=== PATIENT | female | born 1955 | race Caucasian/White ===

== ENCOUNTER → 2023-11-16 13:59 | Outpatient (REF) | payer OTHER, SELFPAY | LOC: HWRCS 13:59 | PROVIDERS: ATTENDING PHYSICIAN Internal Medicine; FAMILY PHYSICIAN Family Medicine | DX: R00.2 Palpitations (principal); I34.0 Nonrheumatic mitral (valve) insufficiency; I47.10 Supraventricular tachycardia, unspecified | CPT/HCPCS: 93306 ==

== ENCOUNTER → 2024-01-05 11:35 | Outpatient (REF) | payer OTHER, SELFPAY | LOC: HWWDC 11:35 | PROVIDERS: ATTENDING PHYSICIAN Specialist; FAMILY PHYSICIAN Family Medicine | DX: Z12.31 Encounter for screening mammogram for malignant neoplasm of breast (principal) | CPT/HCPCS: 77063; 77067 ==

== ENCOUNTER 2024-11-24 01:25 | Emergency (ER) | payer OTHER, SELFPAY ==
[2024-11-24] VITALS (7 sets, daily range): BP systolic 127–167; BP diastolic 73–131; BMI 25.4
--- NOTE | 2024-11-24 02:06 | EDRN ---
Pt went to bed, laid down for few minutes and she noted rapid HR 'it was quick then off.' Pt has had episodes similar to this due to leaky heart valve. Usually, palpitations go away in few minutes but tonight, they persisted. No hx afib. No sob,
cp, n/v, dizziness.
[2024-11-24 02:18] LABS: Hematocrit 45.2 % (37.0-47.0); Hemoglobin 15.3 g/dL (12.0-16.0); Mean Corp Hgb Conc. 33.8 g/dL (33.0-37.0); Mean Corpuscular Volume 88.6 fL (81.0-99.0); Nucleated Red Blood Cells % 0 %; Platelet Count 434 10^3/uL (130-400); Red Cell Dist. Width 14.3 % (11.5-14.5)
[2024-11-24] MEDS: CARDIZEM 15 MG IV (02:21)
--- NOTE | 2024-11-24 02:23 | ED.GENMED ---
History of Present Illness
<Timothy Martínez, DO - Last Filed: 11/24/24 02:23>
General
Chief Complaint: Heart Rate Problem
Time Seen by Provider: 11/24/24 01:57
<Vijay Thomas MD, Resident - Last Filed: 11/24/24 04:22>
General
Source: patient
History of Present Illness
History of Present Illness:
This is a 69-year-old female with known history of paroxysmal SVT, palpitations, mitral regurgitation, hypertension and anxiety follows with cardiology Dr. Rivera outpatient presenting in the emergency department today with concerns of ' funny
sensation in the heart' she states that she was fine and went to bed and all of a sudden she developed these sensations and felt that her heart was beating too fast. She was very anxious which prompted her to visit the emergency department.
Past History
<Timothy Martínez, DO - Last Filed: 11/24/24 02:23>
Past History
ED Past Medical History: GERD, Hypercholesterolemia, Psychiatric and Other (History of dizziness, digestive issues with GERD, anxiety, Palpatations)
ED Past Surgical History: Gynecological (Hysterectomy) and Other (Pre-cancerous mass removed, right breast surgery,)
Social History
Tobacco: Non-smoker
Alcohol: None
Drug: None
Personal:
Living: with family
Employment: Not employed
Family History
Family History: Other (Noncontributory)
Review of Systems
<Vijay Thomas MD, Resident - Last Filed: 11/24/24 04:22>
Review of Systems
Allergies reviewed?: Yes
All Other Systems: ROS reviewed and negative except as documented in HPI and ROS
Phy Exam
<Vijay Thomas MD, Resident - Last Filed: 11/24/24 04:22>
General Physical Exam
General Presentation: well appearing (Anxious)
General age: appears stated age
General Skin: warm
General Habitus: normal
Cardiovascular Exam
Cardiovascular Exam: irregularly irregular and tachycardia
Pulmonary Exam
Pulmonary Exam: lungs clear, no respiratory distress and no cough
Gastrointestinal Exam
Gastrointestinal Exam: normal bowel sounds, non tender, soft and non distended
Neurological Exam
Neurological Exam: alert and oriented x3
Musculoskeletal Exam
Musculoskeletal Exam: full ROM
Psychiatric Exam
Psychiatric Exam: anxious
Course
<Timothy Martínez, DO - Last Filed: 11/24/24 02:23>
Orders/Labs/Results
Orders:
Orders
11/24/24 01:35
EKG [Electrocardiogram (*1)] Urgent
Reason for Study: Palpitations
11/24/24 01:36
EKG- Treatment ONCE
11/24/24 02:04
Diltiazem HCl [Cardizem] 15 mg IV NOW STA
11/24/24 02:11
Comprehensive Metabolic Panel Urgent
NT-proBNP Urgent
TSH Urgent
Troponin I Urgent
11/24/24 02:12
Complete Blood Count/With Diff Urgent
11/24/24 02:15
Diltiazem 125 mg/125 ml Nss [Cardizem] 125 mg in 125 ml IV PER PROTOCOL
Initial dose in mg/hr, then titrate:: 5
Titrate to keep:: Heart rate 80-100 bpm
Titrate by mg/hr:: 5 mg/hr
Frequency of titrations (minutes):: 15
Maximum dose in mg/hr:: 15
11/24/24 03:47
EKG [Electrocardiogram (*1)] Urgent
Reason for Study: Other
Other Reason for Exam: on cardizem converted to nsr
EKG- Treatment ONCE
Abnormal Lab Results
11/24/24 11/24/24
02:11 02:12
Plt Count 434 H 10^3/uL
(130-400)
Absolute Monos (auto) 1.1 H 10^3/uL
(0.1-0.6)
Monocytes % 13.7 H %
(1.7-9.3)
Chloride 111 H mmol/L
(98-107)
Glucose 109 H mg/dl
(70-99)
TSH 5.51 H uIU/ml
(0.47-4.68)
11/24/24 02:12
11/24/24 02:11
Vital Signs
Initial and Last Documented VS:
Initial Vital Signs
Temp Pulse Resp BP Pulse Ox
98.3 F 138 18 167/101 96
11/24/24 01:31 11/24/24 01:31 11/24/24 01:31 11/24/24 01:31 11/24/24 01:31
Last Documented Vital Signs
Temp Pulse Resp BP Pulse Ox
98.3 F 82 17 132/86 97
11/24/24 01:31 11/24/24 04:00 11/24/24 04:00 11/24/24 04:00 11/24/24 04:00
<Vijay Thomas MD, Resident - Last Filed: 11/24/24 04:22>
Orders/Labs/Results
Orders:
Orders
11/24/24 01:35
EKG [Electrocardiogram (*1)] Urgent
Reason for Study: Palpitations
11/24/24 01:36
EKG- Treatment ONCE
11/24/24 02:04
Diltiazem HCl [Cardizem] 15 mg IV NOW STA
11/24/24 02:11
Comprehensive Metabolic Panel Urgent
NT-proBNP Urgent
TSH Urgent
Troponin I Urgent
11/24/24 02:12
Complete Blood Count/With Diff Urgent
11/24/24 02:15
Diltiazem 125 mg/125 ml Nss [Cardizem] 125 mg in 125 ml IV PER PROTOCOL
Initial dose in mg/hr, then titrate:: 5
Titrate to keep:: Heart rate 80-100 bpm
Titrate by mg/hr:: 5 mg/hr
Frequency of titrations (minutes):: 15
Maximum dose in mg/hr:: 15
11/24/24 03:47
EKG [Electrocardiogram (*1)] Urgent
Reason for Study: Other
Other Reason for Exam: on cardizem converted to nsr
EKG- Treatment ONCE
Abnormal Lab Results
11/24/24 11/24/24
02:11 02:12
Plt Count 434 H 10^3/uL
(130-400)
Absolute Monos (auto) 1.1 H 10^3/uL
(0.1-0.6)
Monocytes % 13.7 H %
(1.7-9.3)
Chloride 111 H mmol/L
(98-107)
Glucose 109 H mg/dl
(70-99)
TSH 5.51 H uIU/ml
(0.47-4.68)
11/24/24 02:12
11/24/24 02:11
Vital Signs
Initial and Last Documented VS:
Initial Vital Signs
Temp Pulse Resp BP Pulse Ox
98.3 F 138 18 167/101 96
11/24/24 01:31 11/24/24 01:31 11/24/24 01:31 11/24/24 01:31 11/24/24 01:31
Last Documented Vital Signs
Temp Pulse Resp BP Pulse Ox
98.3 F 82 17 132/86 97
11/24/24 01:31 11/24/24 04:00 11/24/24 04:00 11/24/24 04:00 11/24/24 04:00
<Vijay Thomas MD, Resident - Last Filed: 11/24/24 04:22>
MDM/Problems Addressed
Differential Diagnosis Includes:
A-fib vs others
MDM/Problems Addressed:
EKG with A-fib
CBC, CMP, Trop, BNP, TSH
IV Cardizem 50 mg
IV Cardizem drip at 5 mg per hr
update: Patient's heart rate decreased from 150s to low 110s. Patient reports that she is feeling much better. Remains in A-fib
update: Patient in sinus rhythm. Feeling 100% better. Offers no new complaints. Cardizem infusion stopped.
CHADVASC score is 3 with 4.6% risk of stroke/TIA/PE
Long discussion with the patient for the need of anticoagulation. Patient hesitant. States ' you can send it to the pharmacy I will think on it' she was referred understanding of the risks and benefits.
Return precautions reviewed. She was in understanding and agreed with the plan
Chronic conditions affecting care: HTN and Arrhythmia
<Timothy Martínez, DO - Last Filed: 11/24/24 02:23>
*Pulse Oximetry
SaO2: 99
Oxygen Mode of Delivery: Room air
<Vijay Thomas MD, Resident - Last Filed: 11/24/24 04:22>
*Pulse Oximetry
Patient hypoxic: no
*Critical Care Note
Total Time (30-74mins, 75-104mins- exclusive of procedures): Not Applicable
ED Attending Note
<Timothy Martínez, - Last Filed: 11/24/24 02:23>
ED Attending Note
Patient seen and examined by attending physician: Yes
I performed a history and physical exam of patient and discussed management with resident, I reviewed resident's note and agree with documented findings and plan of care.: Yes
ED Attending Note:
Seen with resident examined independently 69-year-old female patient of Dr. Fish, has hypertension multiple drug allergies, had SVT previously, presents with palpitations, looks like A-fib with rapid ventricular response
Plan to be rate control labs TSH
-
Portions of this chart may have been created with voice recognition software.� Occasional wrong word or��sound alike� substitutions may have occurred due to the inherent limitations of voice recognition software.
Discharge Plan
Departure
Patient Disposition: Home (Routine Discharge)
Date of Disposition: 11/24/24
Time of Disposition: 04:18
Patient with high blood pressure during this ER visit?: Yes
Discharge Problem:
A-fib
Instructions: Atrial Fibrillation (DC), Apixaban, Palpitations (DC), BLOOD PRESSURE
Prescriptions:
New
Eliquis 5 mg tablet
5 mg PO BID Qty: 60 0RF
No Action
ascorbic acid (vitamin C) [Vitamin C] 1,000 mg Tablet
1,000 mg PO DAILY
cholecalciferol (vitamin D3) [Vitamin D3] 50 mcg (2,000 unit) Tablet
50 mcg PO DAILY
Nattokinase 50 mg Capsule
100 mg PO DAILY
Biomega
1,000 mg PO DAILY
Vitamin B6 Phosphate
20 mg PO DAILY
Zn Zyme Forte
25 mg PO DAILY
magnesium 100 mg Tablet
100 mg PO DAILY
Referrals:
Peter Rivera MD [Active, Cardiology] - Follow up in 2-3 days
UNKNOWN - PT DOES,NOT KNOW [Family Provider]
Activity Restrictions/Additional Instructions:
You were seen in the [facility] emergency department with concerns of ' funny sensations in the chest'. Found to have A-fib. You received Cardizem 15 mg IV and was started on Cardizem drip. Eventually transition to normal sinus rhythm.
Blood work during your stay was unremarkable. There was slight elevation of TSH to 5.51. A prescription of Eliquis was sent to the pharmacy. Please follow-up with cardiology and family doctor for further evaluation recommendation. If you develop
any new symptom or worsening of the current symptoms please return to the emergency department
Interventions
Interventions:
*Risk Screen - Suicide Last Done: 11/24/24 01:31
*General Assessment Last Done: 11/24/24 01:59
*Neglect/Abuse Screening Last Done: 11/24/24 01:59
*ED- Fall Risk Assessment Last Done: 11/24/24 02:06
ED- Cardiac Assessment Last Done: 11/24/24 02:36
ED- Pulmonary Assessment Last Done: 11/24/24 02:36
Discharge Date and Time
Print Language: WELSH
[2024-11-24] MEDS: CARDIZEM 125 IV (02:28)
[2024-11-24 02:35] LABS: ALT (SGPT) 17 U/L (0-35); AST (SGOT) 28 U/L (14-36); Albumin 4.6 g/dl (3.5-5.0); Alkaline Phosphatase 84 U/L (38-126); Blood Urea Nitrogen 17 mg/dl (7-17); Calcium 9.8 mg/dl (8.4-10.2); Carbon Dioxide 23 mmol/L (22-30); Chloride 111 mmol/L (98-107); Estimated Creatinine Clearance 88 ml/min; Glucose 109 mg/dl (70-99); Potassium 4.4 mmol/L (3.5-5.1); Sodium 141 mmol/L (135-145); Total Protein 7.7 g/dl (6.3-8.2); eGFR > 60.00
[2024-11-24 02:54] LABS: Troponin I < 0.012 ng/ml
[2024-11-24 03:10] LABS: TSH 5.51 uIU/ml (0.47-4.68)
--- NOTE | 2024-11-24 03:58 | EDRN ---
Pt had episode of HR in 150's - pt suddenly converted to NSR. Cardizem infusion stopped. Repeat EKG obtained, Dr Thomas informed and into room to speak with pt.
== END 2024-11-24 04:40 | disposition home or self-care (01) ==
LOC: EMR 01:25
PROVIDERS: EMERGENCY PHYSICIAN Emergency Medicine
DX: I48.91 Unspecified atrial fibrillation (principal); I47.19 Other supraventricular tachycardia; I34.0 Nonrheumatic mitral (valve) insufficiency; I10 Essential (primary) hypertension; E78.00 Pure hypercholesterolemia, unspecified; F41.9 Anxiety disorder, unspecified; K21.9 Gastro-esophageal reflux disease without esophagitis; Z88.6 Allergy status to analgesic agent; Z88.1 Allergy status to other antibiotic agents; Z91.011 Allergy to milk products; Z88.5 Allergy status to narcotic agent; Z88.8 Allergy status to other drugs, medicaments and biological substances; Z91.018 Allergy to other foods; Z91.048 Other nonmedicinal substance allergy status
CPT/HCPCS: 99284; 96365; 80053; 83880; 84443; 84484; 85025; 93005

== ENCOUNTER → 2024-11-27 09:31 | Emergency (ER) | payer OTHER, SELFPAY ==
[2024-11-27 09:43] VITALS: BP 163/99
[2024-11-27 10:32] VITALS: BP 173/81
--- NOTE | 2024-11-27 10:52 | ED.GENMED ---
History of Present Illness
<Vijay Thomas MD, Resident - Last Filed: 11/27/24 11:19>
General
Chief Complaint: Heart Rate Problem
Source: patient
Exam Limitations: none
Time Seen by Provider: 11/27/24 10:32
History of Present Illness
History of Present Illness:
This is a 69-year-old female with known history of paroxysmal SVT, palpitations, mitral regurgitation, hypertension and anxiety follows with cardiology outpatient presenting in the emergency department today with concerns of palpitations. She was
seen recently on 719 for same and was found to be in new onset A-fib was given diltiazem 15 mg and diltiazem drip and eventually reverted to normal sinus rhythm and was discharged on Eliquis.
She never started Eliquis as she does not feel comfortable taking any pills. Today when she woke up she felt her heart was racing which prompted her to come to the ER.
Denies any chest pain and denies any recent changes in her medical history except as noted.
Past History
<Vijay Thomas MD, Resident - Last Filed: 11/27/24 11:19>
Past History
ED Past Medical History: Arrthythmia (New onset A-fib.), GERD, Hypercholesterolemia, Psychiatric and Other (History of dizziness, digestive issues with GERD, anxiety, Palpatations)
ED Past Surgical History: Gynecological (Hysterectomy) and Other (Pre-cancerous mass removed, right breast surgery,)
Social History
Tobacco: Non-smoker
Alcohol: None
Drug: None
Personal:
Living: with family
Employment: Not employed
Family History
Family History: Other (Noncontributory)
Review of Systems
<Vijay Thomas MD, Resident - Last Filed: 11/27/24 11:19>
Review of Systems
Allergies reviewed?: Yes
All Other Systems: ROS reviewed and negative except as documented in HPI and ROS
Phy Exam
<Vijay Thomas MD, Resident - Last Filed: 11/27/24 11:19>
General Physical Exam
General Presentation: well appearing (Anxious)
General age: appears stated age
General Skin: warm
General Habitus: normal
Cardiovascular Exam
Cardiovascular Exam: regular rate/rhythm, no murmur and tachycardia
Pulmonary Exam
Pulmonary Exam: lungs clear, no respiratory distress and no cough
Gastrointestinal Exam
Gastrointestinal Exam: normal bowel sounds, non tender, soft and non distended
Neurological Exam
Neurological Exam: alert and oriented x3
Musculoskeletal Exam
Musculoskeletal Exam: full ROM
Psychiatric Exam
Psychiatric Exam: anxious
Course
<Vijay Thomas MD, Resident - Last Filed: 11/27/24 11:19>
Orders/Labs/Results
Orders:
Orders
11/27/24 09:45
EKG [Electrocardiogram (*1)] Urgent
Reason for Study: Atrial Fibrillation
11/27/24 09:46
EKG- Treatment ONCE
Vital Signs
Initial and Last Documented VS:
Initial Vital Signs
Temp Pulse Resp BP Pulse Ox
36.4 C 94 18 163/99 99
11/27/24 09:43 11/27/24 09:43 11/27/24 09:43 11/27/24 09:43 11/27/24 09:43
Last Documented Vital Signs
Temp Pulse Resp BP Pulse Ox
36.4 C 70 16 155/79 99
11/27/24 09:43 11/27/24 11:15 11/27/24 11:15 11/27/24 11:00 11/27/24 10:56
<Ravi Fan MD - Last Filed: 11/27/24 11:39>
Orders/Labs/Results
Orders:
Orders
11/27/24 09:45
EKG [Electrocardiogram (*1)] Urgent
Reason for Study: Atrial Fibrillation
11/27/24 09:46
EKG- Treatment ONCE
Vital Signs
Initial and Last Documented VS:
Initial Vital Signs
Temp Pulse Resp BP Pulse Ox
36.4 C 94 18 163/99 99
11/27/24 09:43 11/27/24 09:43 11/27/24 09:43 11/27/24 09:43 11/27/24 09:43
Last Documented Vital Signs
Temp Pulse Resp BP Pulse Ox
36.4 C 70 16 155/79 99
11/27/24 09:43 11/27/24 11:15 11/27/24 11:15 11/27/24 11:00 11/27/24 10:56
<Vijay Thomas MD, Resident - Last Filed: 11/27/24 11:19>
MDM/Problems Addressed
Differential Diagnosis Includes:
Anxiety vs A-fib
MDM/Problems Addressed:
EKG with normal sinus rhythm
I had a long discussion with the patient regarding her new onset diagnosis of A-fib and the importance of following with outpatient cardiology and probably a nurse monitoring for few days. Discussed the use of Eliquis and its benefits and risk
factors. Patient still hesitant to start as she does not feel comfortable taking any pills at all. Encouraged her to follow-up with outpatient cardiology for additional recommendations.
Patient repeatedly mentioned that she thinks she has anxiety attacks which causes palpitation. Discussed that the previous 20 to help with anxiety and she has a scheduled appointment with her family doctor next week. Encouraged her to discuss
treatment options for anxiety; probably a low-dose SSRI.
Patient also received a phone call from her cardiology office where she is scheduled to see a dcs engineer. They informed the patient that they sent a prescription of propranolol and also another prescription of Eliquis and advised her to start
this medication.
Patient voices understanding and agree with the plan.
Shared decision was made with patient for discharge home. Return precaution reviewed.
Chronic conditions affecting care: HTN and Arrhythmia
<Vijay Thomas MD, Resident - Last Filed: 11/27/24 11:19>
*Pulse Oximetry
SaO2: 99
Oxygen Mode of Delivery: Room air
Patient hypoxic: no
*Critical Care Note
Total Time (30-74mins, 75-104mins- exclusive of procedures): Not Applicable
ED Attending Note
<Vijay Thomas MD, Resident - Last Filed: 11/27/24 11:19>
-
Portions of this chart may have been created with voice recognition software.� Occasional wrong word or��sound alike� substitutions may have occurred due to the inherent limitations of voice recognition software.
<Ravi Fan MD - Last Filed: 11/27/24 11:39>
ED Attending Note
Patient seen and examined by attending physician: Yes
I performed a history and physical exam of patient and discussed management with resident, I reviewed resident's note and agree with documented findings and plan of care.: Yes
ED Attending Note:
I have seen and evaluated the patient with a [id number] encounter. I have spoken to the resident and involved in the medical history, the physical exam, medical decision making.
Evaluation and management service: agree unless noted differently below.
Results interpretation: agree unless noted differently below.
Focused HPI: 69-year-old female with history as noted presents to the ER for evaluation after an episode of palpitations. Patient was recently diagnosed with new onset A-fib on Tuesday. She was treated with Cardizem and converted to sinus rhythm
and was discharged on . She sees Dr. Rivera and has a follow-up appointment next week. She says that this morning she was lying in bed and she had some palpitations. She says she does occasionally get anxiety with palpitations but given her
recent diagnosis she opted to come to the ER to ensure that she was not in A-fib. She says that she was symptomatic at the time of EKG, by the time of my assessment she is asymptomatic. No chest pain, shortness of breath, dizziness or any other
acute issues.
Physical exam: Awake and alert not in distress. Hypertensive otherwise normal vitals. No cardiac rubs gallops or murmurs in regular rhythm on auscultation. Lungs sound clear. No edema in the legs.
Medical Decision Makin-year-old female who was recently diagnosed with A-fib had some palpitations this morning and came to the ER with concern that she could be in A-fib. EKG reviewed and shows sinus rhythm with no ectopy. Remains in sinus
rhythm during my assessment and is asymptomatic. She thinks that this may have been anxiety this morning. No indication for repeat emergent labs in my judgment. Spoke to patient about follow-up plan and return precautions and answered all
questions regarding her recent diagnosis.
Discharge Plan
Departure
Patient Disposition: Home (Routine Discharge)
Date of Disposition: 11/27/24
Time of Disposition: 11:17
Patient with high blood pressure during this ER visit?: Yes
Condition: Fair
Discharge Problem:
Palpitations
Instructions: Atrial Fibrillation (DC), Palpitations (DC), BLOOD PRESSURE
Prescriptions:
No Action
ascorbic acid (vitamin C) [Vitamin C] 1,000 mg Tablet
1,000 mg PO DAILY
cholecalciferol (vitamin D3) [Vitamin D3] 50 mcg (2,000 unit) Tablet
50 mcg PO DAILY
Nattokinase 50 mg Capsule
100 mg PO DAILY
Biomega
1,000 mg PO DAILY
Vitamin B6 Phosphate
20 mg PO DAILY
Zn Zyme Forte
25 mg PO DAILY
magnesium 100 mg Tablet
100 mg PO DAILY
Eliquis 5 mg tablet
5 mg PO BID Qty: 60 0RF
Activity Restrictions/Additional Instructions:
You were seen in the [facility] emergency department with concerns of palpitation. EKG with normal sinus rhythm. As recommended by your dcs engineer we encourage that you start Eliquis as well as the propranolol prescribed by the
dcs engineer which will potentially help with palpitation and has some beneficial effects for anxiety. Also encouraged to discuss treatment option for anxiety with PCP at your next appointment next week. You can purchase a pulse ox from any
pharmacy to monitor your heart rate when there is a concern for increased heart rate. If you develop any new symptoms or any worrisome concerns please return to the emergency department.
Interventions
Interventions:
*Risk Screen - Suicide Last Done: 11/27/24 09:43
*General Assessment Last Done: 11/27/24 09:43
*ED- Fall Risk Assessment Last Done: 11/27/24 11:36
*ED COVID-19 Vaccine History Last Done: 11/27/24 11:36
ED- Cardiac Assessment Last Done: 11/27/24 11:36
ED- Pulmonary Assessment Last Done: 11/27/24 11:37
Discharge Date and Time
Print Language: SPANISH
[2024-11-27 11:00] VITALS: BP 155/79
== END | disposition home or self-care (01) ==
LOC: EMR 09:31
PROVIDERS: EMERGENCY PHYSICIAN Emergency Medicine; FAMILY PHYSICIAN Family Medicine
DX: R00.2 Palpitations (principal); I47.10 Supraventricular tachycardia, unspecified; E78.00 Pure hypercholesterolemia, unspecified; F41.9 Anxiety disorder, unspecified; I10 Essential (primary) hypertension; I34.0 Nonrheumatic mitral (valve) insufficiency; I48.91 Unspecified atrial fibrillation; Z90.710 Acquired absence of both cervix and uterus
CPT/HCPCS: 99283; 93005

== ENCOUNTER 2024-12-12 03:27 | Emergency (ER) | payer OTHER, SELFPAY ==
[2024-12-12 03:32] VITALS: BP 178/107
[2024-12-12 03:47] VITALS: BMI 24.7
--- NOTE | 2024-12-12 04:09 | ED.GENMED ---
History of Present Illness
General
Chief Complaint: Heart Rate Problem
Source: patient
Exam Limitations: none
Time Seen by Provider: 12/12/24 03:50
History of Present Illness
History of Present Illness:
See MDM
Past History
Past History
ED Past Medical History: Arrthythmia (New onset A-fib.), GERD, Hypercholesterolemia, Psychiatric and Other (History of dizziness, digestive issues with GERD, anxiety, Palpatations)
ED Past Surgical History: Gynecological (Hysterectomy) and Other (Pre-cancerous mass removed, right breast surgery,)
Social History
Tobacco: Non-smoker
Alcohol: None
Drug: None
Personal:
Living: with family
Employment: Not employed
Family History
Family History: Other (Noncontributory)
Phy Exam
Physical Exam
Physical Exam:
See MDM
Course
Orders/Labs/Results
Orders:
Orders
12/12/24 03:37
Electrocardiogram (*1) Urgent
Reason for Study: Other
Other Reason for Exam: Respiratory Distress
Cardiac Monitoring- Treatment ONCE
EKG- Treatment ONCE
O2 Therapy [RESP] Urgent
Titrate/Wean O2 to maintain O2 sat greater than (%): 93
Special Instructions: TO MAINTAIN CONTINUOUS O2 SATS >/= 93%
Pulse Ox/cont/shift [RESP] Urgent
Quantity: 1
Special Instructions: continuous pulse ox
12/12/24 04:07
Diltiazem Extended Release [Cardizem Cd] 120 mg PO NOW STA
12/12/24 03:37
12/12/24 03:37
Vital Signs
Initial and Last Documented VS:
Initial Vital Signs
Temp Pulse Resp BP Pulse Ox
97.7 F 102 24 178/107 99
12/12/24 03:32 12/12/24 03:32 12/12/24 03:32 12/12/24 03:32 12/12/24 03:32
Last Documented Vital Signs
Temp Pulse Resp BP Pulse Ox
97.7 F 92 20 172/104 99
12/12/24 03:32 12/12/24 04:13 12/12/24 04:00 12/12/24 04:13 12/12/24 04:12
MDM/Problems Addressed
Differential Diagnosis Includes:
Note:
CHIEF COMPLAINT(S)
Recurrent episodes of palpitations, diagnosed with atrial fibrillation (AFib) three weeks ago.
HISTORY OF PRESENT ILLNESS
The patient is a 69-year-old female with a new diagnosis of atrial fibrillation from three weeks ago. She reported an episode of palpitations that occurred around 3:00 a.m. when she was trying to sleep, related to discomfort from her neck. She
describes the sensation as her heart racing. The patient attempted to manage this with metoprolol but experienced significant dizziness, even at a reduced dose of 12.5 mg. She is currently on apixaban (Eliquis) as a blood thinner. The patient
expresses a desire to try a different medication that doesn't cause dizziness. There is discussion about potentially starting her on a calcium channel efren due to its similar effects to beta blockers but with potentially better tolerance. The
patient was compliant with her apixaban therapy, and the provider decided against cardioversion since she had self-converted.
PAST MEDICAL AND SURIGICAL HISTORY
History of atrial fibrillation diagnosed three weeks ago.
MEDICATIONS
- Apixaban (Eliquis) for atrial fibrillation
- Metoprolol (previously taken, but discontinued due to dizziness)
PHYSICAL EXAM
General: Alert, no acute distress.
Skin: Warm, dry.
Head: Normocephalic, atraumatic
Neck: Appears supple, trachea midline.
Eyes, Ears, Nose, Mouth, and Throat: Oral mucosa moist.
Cardiovascular: No signs of cyanosis. Regular rate and rhythm
Respiratory: Respirations are non-labored.
Abdomen: Non-distended
Musculoskeletal: No deformities
Neurological: No focal neurological deficit observed.
Psychiatric: Cooperative, appropriate mood and affect.
PLAN
1. Initiate a calcium channel efren at the lowest dose to manage atrial fibrillation symptoms and replace the beta efren.
2. Provide a dose during the visit to ensure symptom stabilization.
3. Discuss ongoing management and follow-up with the primary care physician for further tailoring of AFib therapy.
4. Educate the patient about AFib, and instruct her on recognizing symptoms and when to seek medical attention.
DIFFERENTIAL DIAGNOSIS
The Differential Diagnosis includes, in no particular order and is not limited to:
1. Atrial fibrillation
2. Paroxysmal supraventricular tachycardia (PSVT)
3. Sinus tachycardia
4. Anxiety disorder
5. Hyperthyroidism
6. Dehydration
7. Pulmonary embolism
8. Mitral valve prolapse
9. Hypertension
10. Coronary artery disease
My independent EKG interpretation is:
- Rhythm: Normal sinus rhythm
- [place]: Normal axis
- Notable findings: No ST elevation myocardial infarction (STEMI)
SUMMARY OF ENCOUNTER
The patient was seen for recurrent episodes of palpitations with a history of atrial fibrillation. She recently experienced dizziness after starting diltiazem. She seems sensitive to medications, prompting a consideration to lower her dosage to 30
mg of diltiazem twice a day to alleviate side effects and ensure compliance.
PLAN
Initiate a reduced dose of diltiazem at 30 mg twice daily to manage atrial fibrillation symptoms while minimizing dizziness. Ensure patient compliance and tolerability with the dosage adjustment.
PATIENT EDUCATION AND COUNSELING
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
FOLLOW-UP INSTRUCTIONS
The patient is instructed to follow up with her rubber roller grinder to monitor her condition and adjust treatment as necessary.
MEDICATION RECONCILIATION
- Diltiazem, 30 mg, to be taken twice daily. Adjusted to manage dizziness and ensure tolerability.
MEDICAL DECISION MAKING
- Complexity of Data Reviewed: Chronic conditions affecting care include a history of atrial fibrillation. Differential Diagnosis includes:
1. Atrial fibrillation
2. Paroxysmal supraventricular tachycardia (PSVT)
3. Sinus tachycardia
4. Anxiety disorder
5. Hyperthyroidism
6. Dehydration
7. Pulmonary embolism
8. Mitral valve prolapse
9. Hypertension
10. Coronary artery disease
- Risk: Prescription medication management to mitigate the risk of side effects and improve medication adherence.
DIAGNOSIS
- Atrial fibrillation (I48.91)
*Pulse Oximetry
SaO2: 99
Oxygen Mode of Delivery: Room air
Patient hypoxic: no
*Critical Care Note
Total Time (30-74mins, 75-104mins- exclusive of procedures): Not Applicable
ED Attending Note
-
Portions of this chart may have been created with voice recognition software.� Occasional wrong word or��sound alike� substitutions may have occurred due to the inherent limitations of voice recognition software.
Discharge Plan
Departure
Patient Disposition: Home (Routine Discharge)
Date of Disposition: 12/12/24
Time of Disposition: 04:48
Patient with high blood pressure during this ER visit?: Yes
Discharge Problem:
PAF (paroxysmal atrial fibrillation)
Instructions: Atrial Fibrillation (DC), BLOOD PRESSURE
Prescriptions:
New
diltiazem HCl [Cardizem] 30 mg tablet
30 mg PO BID Qty: 60 0RF
No Action
ascorbic acid (vitamin C) [Vitamin C] 1,000 mg Tablet
1,000 mg PO DAILY
cholecalciferol (vitamin D3) [Vitamin D3] 50 mcg (2,000 unit) Tablet
50 mcg PO DAILY
Biomega
1,000 mg PO DAILY
Vitamin B6 Phosphate
20 mg PO DAILY
Zn Zyme Forte
25 mg PO DAILY
magnesium 100 mg Tablet
100 mg PO DAILY
Eliquis 5 mg tablet
5 mg PO BID Qty: 60 0RF
Activity Restrictions/Additional Instructions:
Please return for any worsening symptoms.
You may return at any time if you have further concerns.
Please follow up with your doctor at the first available appointment, preferably this week.
Thank you for choosing [facility].
Interventions
Interventions:
*Risk Screen - Suicide Last Done: 12/12/24 03:32
*General Assessment Last Done: 12/12/24 03:32
*Neglect/Abuse Screening Last Done: 12/12/24 03:32
*ED- Fall Risk Assessment Last Done: 12/12/24 03:32
*ED COVID-19 Vaccine History Last Done: 12/12/24 03:32
Discharge Date and Time
Print Language: QATARI
[2024-12-12] MEDS: CARDIZEM CD 120 MG PO (04:13)
[2024-12-12 04:45] VITALS: BP 165/89
== END 2024-12-12 05:10 | disposition home or self-care (01) ==
LOC: EMR 03:27
PROVIDERS: EMERGENCY PHYSICIAN Student in an Organized Health Care Education/Training Program; FAMILY PHYSICIAN Family Medicine
DX: I48.0 Paroxysmal atrial fibrillation (principal); R03.0 Elevated blood-pressure reading, without diagnosis of hypertension; E78.00 Pure hypercholesterolemia, unspecified; F41.9 Anxiety disorder, unspecified; K21.9 Gastro-esophageal reflux disease without esophagitis; Z79.01 Long term (current) use of anticoagulants
CPT/HCPCS: 99285; 93005